=== PATIENT | male | born 1955 | race Caucasian/White ===

== ENCOUNTER 2017-03-04 05:26 | Emergency (ER) | payer BC, OTHER ==
[~2017-03-04] VITALS: Ht 182.9 cm; Wt 106.8 kg
[~2017-03-04 05:26] MED LIST: ACTUNK; GLYUNK; [UNRECOGNIZED DRUG - OTHER]
[2017-03-04 05:30] VITALS: TEMP 37; Ht 182.9 cm; Wt 106.8 kg
[2017-03-04 06:06] LABS: BASO % 0.3 %; BASO ABS # 0.02 K/uL (0-0.2); COMPLETE YES; EOS % 1.7 %; HEMATOCRIT 42.8 % (42-52); IG% 0.3 %; LYMPH ABS # 1.12 K/uL (1.2-3.4); MEAN CELL VOLUME 87.7 fL (80-100); MEAN CORPUSCULAR HEMOGLOBIN 29.7 pg (25-34); MEAN CORPUSCULAR HGB CONC 33.9 g/dl (32-36); MEAN PLATELET VOLUME 8.8 fL (7.4-10.4); MONO % 10.4 %; NEUT % 68.3 %; PLATELET COUNT 170 K/uL (130-400); RED BLOOD COUNT 4.88 M/uL (4.7-6.1); WHITE BLOOD COUNT 5.88 K/uL (4.8-10.8)
[2017-03-04 06:16] VITALS: O2SAT 94
--- NOTE | 2017-03-04 06:33 | DIAGNOSTIC IMAGING REPORT ---
HEAD WITHOUT CONTRAST (CT) CT DOSE: 614.27 mGy.cm HISTORY: Mental status change syncope/dizzy TECHNIQUE: Multiaxial CT images of the head were performed without the use of intravenous contrast. A dose lowering technique was utilized adhering to the principles of ALARA. Comparison: None. Findings: The paranasal sinuses and mastoid air cells are clear. The calvarium and skull base are intact. The ventricles and sulci are within normal limits. There is no mass, hematoma, midline shift, or acute infarct. Impression: No acute intracranial abnormality. The above report was generated using voice recognition software. It may contain grammatical, syntax or spelling errors. Electronically signed by: Audi Ferrari M.D. 03/04/2017 6:31 AM Dictated Date/Time: 03/04/2017 6:30 AM
[2017-03-04 06:38] LABS: ALT/SGPT 38 U/L (12-78); AST/SGOT 18 U/L (15-37); BLOOD UREA NITROGEN 15 mg/dl (7-18); BUN/CREATININE RATIO 12.2 (10-20); CALCIUM 8.9 mg/dl (8.5-10.1); CARBON DIOXIDE 23 mmol/L (21-32); CHLORIDE 100 mmol/L (98-107); CREATININE 1.25 mg/dl (0.60-1.40); GLUCOSE 358 mg/dl (70-99); POTASSIUM 3.9 mmol/L (3.5-5.1); SODIUM 135 mmol/L (136-145)
[2017-03-04] MEDS ORDERED: SODIUM CHLORIDE 0.9% 1000ML 1,000 ML IV STA (06:38)
[2017-03-04] MEDS ORDERED: ASPI81TA28 PO (06:41)
[2017-03-04] MEDS ORDERED: ALLO300T2 PO (06:41)
[2017-03-04 06:42] LABS: ALKALINE PHOSPHATASE 141 U/L (45-117)
[2017-03-04] MEDS ORDERED: GLYB5TAB8 PO (06:42)
[2017-03-04] MEDS ORDERED: ATOR-24 PO (06:42)
[2017-03-04] MEDS ORDERED: ENAL1TAB31 PO (06:42)
[2017-03-04] MEDS ORDERED: METF-384 PO (06:42)
[2017-03-04 06:48] LABS: BETA-HYDROXYBUTYRATE 2.73 mg/dL (0.2-2.81)
[2017-03-04 07:42] VITALS: BP 153/97; PULSE 76; O2SAT 98
--- NOTE | 2017-03-04 21:29 | EMERGENCY ROOM VISIT NOTE ---
History First contact with patient: 05:35 Chief Complaint: FALL Stated Complaint: BLACKED OUT, FELL HIT HEAD History of Present Illness The patient is a 61 year old male who presents to the Emergency Room with complaints of brief syncopal episode at 4 AM this morning. Patient states he was getting ready for work when he was sitting tying his shoes got up to walk to the car and got lightheaded and briefly passed out striking the back of his head on the ground. Patient then went to work but his coworkers convinced him to come to the ER. Patient states for the past year he has been getting lightheaded upon standing and saw his family care doctor for this with no clear answer. Patient is on blood pressure medicine. He is on an ALIZE inhibitor. Patient denies chest pain, dyspnea, neck stiffness, neck pain, back pain, abdominal pain, vomiting, diarrhea, weakness, vision problems, facial pain, palpitations, arm or leg pain. Patient did get lightheaded prior to the syncopal episode. No patient complains of mild discomfort to the back of his head where the abrasion is at. Tetanus is current. He is on a baby aspirin. No prior heart disease or blood clots. No history of CVA. No alcohol or drug use. Upon further questioning, the patient has not been sleeping much. Sometimes he gets 3-4 hours a night of sleep. Last night he did get several hours of sleep though. Review of Systems See HPI for pertinent positives & negatives. A total of 10 systems reviewed and were otherwise negative. Past Medical/Surgical History Hypertension, hyperlipidemia, diabetes, gout Social History Smoking Status: Never Smoker Smokeless Tobacco Use: No Alcohol Use: none Drug Use: none Marital Status: Housing Status: lives with family Occupation Status: employed Current/Historical Medications Scheduled Allopurinol (Zyloprim), 300 MG PO DAILY Aspirin (Aspirin Ec), 81 MG PO DAILY Atorvastatin (Lipitor), 40 MG PO DAILY Enalapril Maleate (Vasotec), 1 TAB PO DAILY Glyburide (Micronase), 10 MG PO BID Metformin Hcl (Glucophage), 1,000 MG PO BID Physical Exam Vital Signs Date Time Temp Pulse Resp B/P (MAP) Pulse Ox O2 Delivery O2 Flow Rate FiO2 03/04/17 07:42 76 20 153/97 98 Room Air 03/04/17 06:45 78 18 160/90 98 Room Air 03/04/17 06:16 94 Room Air 03/04/17 06:12 78 20 159/96 98 Room Air 81 169/92 84 177/93 03/04/17 05:59 84 03/04/17 05:30 37.0 86 18 168/92 98 Room Air Physical Exam PHYSICAL EXAM: VITALS: Vitals are noted on the nurse's note and reviewed by myself. Vital signs stable. GENERAL: Pleasant male smiling and interactive, in no acute distress, nondiaphoretic, well-developed well-nourished. SKIN: Superficial scalp abrasion to the right occipital region The rest of the skin was without obvious lacerations or abrasions. Capillary reflex less than 2 seconds. HEAD: Normocephalic EARS: External auditory canals clear, tympanic membranes pearly guerra without erythema or effusion bilaterally. No hemotympanums. No olea sign. No mastoid tenderness. EYES: Pupils equal round and reactive to light and accommodation. Conjunctivae without injection, sclerae without icterus. Extraocular movements intact. NOSE: Patent, turbinates without inflammation or discharge. No sinus tenderness. No septal hematoma or bleeding. FACE: No facial bone tenderness. Full range of motion of the jaw without tenderness. MOUTH: Mucous membranes moist. Pharynx without erythema or exudate. Uvula midline. Airway patent. Tongue does not deviate. NECK: Supple without nuchal rigidity. Cervical spine is nontender. Full range of motion of the neck without tenderness. No JVD. HEART: Regular rate and rhythm LUNGS: Clear to auscultation bilaterally without wheezes, rales or rhonchi. No dullness to percussion. No retractions or accessory muscle use. No chest wall tenderness. ABDOMEN: Positive bowel sounds x 4. Normal tympanic percussion. Soft, nontender, without masses or organomegaly. No guarding or rebound tenderness. MUSCULOSKELETAL: No tenderness of the thoracic or lumbar spine. Full range of motion without tenderness to palpation in all extremities. Normal gait. Strength 5/5 throughout. NEURO: Patient was alert and oriented to person place and time. Normal Mini- Mental status exam. Normal sensation to light and sharp touch. Negative pronator drift. Cerebellar function intact. No focal neurological deficits. Medical Decision & Procedures Laboratory Results 03/04/17 05:55 Red Blood Count 4.88, Mean Corpuscular Volume 87.7, Mean Corpuscular Hemoglobin 29.7, Mean Corpuscular Hemoglobin Concent 33.9, Mean Platelet Volume 8.8, Neutrophils (%) (Auto) 68.3, Lymphocytes (%) (Auto) 19.0, Monocytes (%) (Auto) 10.4, Eosinophils (%) (Auto) 1.7, Basophils (%) (Auto) 0.3, Neutrophils # (Auto ) 4.01, Lymphocytes # (Auto) 1.12, Monocytes # (Auto) 0.61, Eosinophils # (Auto ) 0.10, Basophils # (Auto) 0.02 03/04/17 05:55 Test 03/04/17 05:55 03/04/17 07:44 03/04/17 07:53 White Blood Count 5.88 K/uL (4.8-10.8) Red Blood Count 4.88 M/uL (4.7-6.1) Hemoglobin 14.5 g/dL (14.0-18.0) Hematocrit 42.8 % (42-52) Mean Corpuscular Volume 87.7 fL (80-100) Mean Corpuscular Hemoglobin 29.7 pg (25-34) Mean Corpuscular Hemoglobin Concent 33.9 g/dl (32-36) Platelet Count 170 K/uL (130-400) Mean Platelet Volume 8.8 fL (7.4-10.4) Neutrophils (%) (Auto) 68.3 % Lymphocytes (%) (Auto) 19.0 % Monocytes (%) (Auto) 10.4 % Eosinophils (%) (Auto) 1.7 % Basophils (%) (Auto) 0.3 % Neutrophils # (Auto) 4.01 K/uL (1.4-6.5) Lymphocytes # (Auto) 1.12 K/uL (1.2-3.4) Monocytes # (Auto) 0.61 K/uL (0.11-0.59) Eosinophils # (Auto) 0.10 K/uL (0-0.5) Basophils # (Auto) 0.02 K/uL (0-0.2) RDW Standard Deviation 42.3 fL (36.4-46.3) RDW Coefficient of Variation 13.2 % (11.5-14.5) Immature Granulocyte % (Auto) 0.3 % Immature Granulocyte # (Auto) 0.02 K/uL (0.00-0.02) Anion Gap 12.0 mmol/L (3-11) Est Creatinine Clear Calc Drug Dose 77.4 ml/min Estimated GFR () 71.1 Estimated GFR (Non- 61.3 BUN/Creatinine Ratio 12.2 (10-20) Calcium Level 8.9 mg/dl (8.5-10.1) Total Bilirubin 0.4 mg/dl (0.2-1) Direct Bilirubin < 0.1 mg/dl (0-0.2) Aspartate Amino Transf (AST/SGOT) 18 U/L (15-37) Alanine Aminotransferase (ALT/SGPT) 38 U/L (12-78) Alkaline Phosphatase 141 U/L (45-117) Total Protein 7.7 gm/dl (6.4-8.2) Albumin 4.2 gm/dl (3.4-5.0) Beta-Hydroxybutyric Acid 2.73 mg/dL (0.2-2.81) Thyroid Stimulating Hormone (TSH) 2.030 uIu/ml (0.300-4.500) Bedside Glucose 249 mg/dl (70-99) Bedside Troponin I < 0.030 ng/ml (0-0.045) Medications Administered Medications (Trade) Dose Ordered Sig/Fred Route Start Time Stop Time Status Last Admin Dose Admin Sodium Chloride 1,000 ml @ 999 mls/hr Q1H1M STAT IV 03/04/17 06:38 03/04/17 07:38 DC 03/04/17 06:44 999 MLS/HR ED Course Prior records/ancillary studies reviewed. Triage Nursing notes reviewed. Additional history obtained from family The patient's history was concerning for syncope. Differential diagnosis: Etiologies such as vasovagal event, infection, hypoglycemia, electrolyte abnormalities, cardiac sources, intracerebral event, toxicologic, neurologic, as well as others were entertained. Physical examination: Patient is alert, interactive and well-appearing ER treatment provided: By mouth fluids On reassessment the patient felt better. Diagnostics interpretation by me: ECG: Normal sinus, normal intervals, no acute ST-T wave changes, rate of 81. Impression normal sinus rhythm interpreted by myself The labs revealed stable H&H. Negative troponin 2 that is 2 hours apart Hyperglycemia without DKA. Patient is given a liter fluids. Blood sugar was repeated. Imaging studies: CT HEAD: Comparison: CT head 06/09/2008. No ICH, mass effect, or edema. Guerra-white matter differentiation is preserved. Right parietal scalp hematoma. No skull fracture. Visualized sinuses and mastoid air cells are clear. Radiologist: Laura Bob M.D. Study ready at 06:11 and initial results transmitted at 06:16 This appears to be consistent with syncope most likely vasovagal or orthostatic in nature. Patient was advised to monitor his blood sugar. Patient was neurovascularly and neurologically intact. He's been suffering from lightheadedness upon standing for quite some time. This could be related to his medications or from dehydration. He was advised to follow-up family care doctor today or tomorrow for further evaluation and workup for syncopal episode or here in the ER sooner for syncope, chest pains, weakness, worsening signs or symptoms or as needed. Patient had unremarkable workup as above. He was well- appearing. He was ambulated without difficulties. By the evaluation outlined above emergent etiologies such as infection, hypoglycemia, electrolyte abnormalities, cardiac sources, intracerebral event, toxicologic, neurologic,as well as others were deemed relatively unlikely. The pt informed about the findings as listed above. All questions were answered and pleased with the treatment. Return instructions were outlined and the patient was discharged in stable condition. Case reviewed with my attending Referral: The patient was referred back to their primary care physician for follow-up in 2 to 3 days for a recheck of the current condition. Medical Decision As above Head Trauma GCS Score: 15 Medication Reconcilliation Current Medication List: was personally reviewed by me Blood Pressure Screening Patient's blood pressure: Elevated blood pressure Blood pressure disposition: Elevated BP felt to be situational Impression Primary Impression: Syncope Additional Impressions: Head injury Scalp abrasion Hyperglycemia due to type 2 diabetes mellitus Departure Information Dispostion Home / Self-Care Condition GOOD Referrals Audi Douglas M.D. (PCP) Patient Instructions My [facility] Additional Instructions Antibiotic ointment and bandage to the areas until healed. Follow up with family doctor or return for any signs of infection (increasing redness, swelling , drainage, or fever). Keep covered when in sun until fully healed then SPF 50 or higher until scar healed. Read head injury handout and return for any symptoms. Tylenol 1000 mg as needed for pain (Maximum 3000 mg Tylenol in 24 hr period). Avoid alcohol and contact sports/activities for one week and follow up with family doctor prior to returning to these activities if still symptomatic. Ice and elevate head. If your symptoms persist more than a week then follow up with the concussion clinic. Call [phone]. Return to ER sooner for headache, fevers, confusion, worsening signs or symptoms or as needed. Monitor your blood sugar. It was high today. Recommend 8 hours of sleep a night. Get up slowly from a sitting position. Follow-up family care doctor in one to 2 days for your syncopal episode. Problem Qualifiers Primary Impression: Syncope Syncope type: unspecified Qualified Codes: R55 - Syncope and collapse Additional Impressions: Head injury Encounter type: initial encounter Qualified Codes: S09.90XA - Unspecified injury of head, initial encounter Scalp abrasion Encounter type: initial encounter Qualified Codes: S00.01XA - Abrasion of scalp, initial encounter
== END 2017-03-04 08:23 | disposition home or self-care (01) ==
LOC: C.EDB 05:27
DX: R55 Syncope and collapse (principal); S09.90XA Unspecified injury of head, initial encounter; S00.01XA Abrasion of scalp, initial encounter; W22.8XXA Striking against or struck by other objects, initial encounter; I10 Essential (primary) hypertension; E78.5 Hyperlipidemia, unspecified; E11.9 Type 2 diabetes mellitus without complications; M10.9 Gout, unspecified; Z79.82 Long term (current) use of aspirin; Z79.84 Long term (current) use of oral hypoglycemic drugs; Z79.899 Other long term (current) drug therapy

== ENCOUNTER 2017-08-14 16:28 | Emergency (ER) | payer OTHER ==
[~2017-08-14] VITALS: Ht 182.9 cm; Wt 105.6 kg
[~2017-08-14 16:28] MED LIST changes: -ACTUNK; +ALLO300T2 PO; +ASPI81TA28 PO; +ATOR-24 PO; +ENAL1TAB31 PO; +GLYB5TAB8 PO; -GLYUNK; +METF-384 PO; -[UNRECOGNIZED DRUG - OTHER]
[2017-08-14 16:33] VITALS: TEMP 36.6; Ht 182.9 cm; Wt 105.6 kg
--- NOTE | 2017-08-14 16:43 | EMERGENCY ROOM VISIT NOTE ---
History Report prepared by Camila: Leana Guaman Under the Supervision of: Dr. Sree Pop M.D. First contact with patient: 16:37 Chief Complaint: CARDIAC ASSESSMENT Stated Complaint: PAIN IN BOTTOM OF NECK- REFERRED History of Present Illness The patient is a 62 year old male who presents to the Emergency Room with complaints of persistent pain under his neck that started last night. He notes the pain occurred while he was breathing. The patient rates his pain a 1/10 in severity. He notes the pain radiated towards his left ear. He states the pain lasted until 1pm today. He notes he does not have any pain now. The patient denies shortness of breath, nausea, vomiting, lightheadedness, or dizziness. The patient has a history of Type II Diabetes. He denies any personal or family history of cardiac issues. Source of History: patient Onset: last night Position: neck (below neck) Symptom Intensity: 1/10 Timing: other (persistent) Associated Symptoms: No SOB, No vomiting Note: Denies lightheadedness or dizziness. Review of Systems See HPI for pertinent positives & negatives. A total of 10 systems reviewed and were otherwise negative. Past Medical & Surgical Diabetes Mellitus, hypertension. Old medical records were reviewed. Nurse's notes were reviewed and I agree with. Family History Diabetes mellitus Hypertension Social History Smoking Status: Former Smoker Alcohol Use: none Drug Use: none Marital Status: Housing Status: lives with family Occupation Status: employed Current/Historical Medications Scheduled Allopurinol (Zyloprim), 300 MG PO DAILY Aspirin (Aspirin Ec), 81 MG PO DAILY Aspirin (Aspirin Ec), 325 MG PO TODAY Atorvastatin (Lipitor), 40 MG PO QPM Enalapril (Vasotec), 10 MG PO DAILY Fish Oil (Valatie-3), 1 CAP PO DAILY Glyburide (Micronase), 10 MG PO BID Metformin Hcl (Glucophage), 1,000 MG PO BID Sitagliptin Phosphate (Januvia), 100 MG PO DAILY Allergies Coded Allergies: No Known Allergies (Unverified , 08/14/17) Physical Exam Vital Signs Date Time Temp Pulse Resp B/P (MAP) Pulse Ox O2 Delivery O2 Flow Rate FiO2 08/14/17 19:25 67 18 142/82 96 Room Air 08/14/17 18:06 67 18 127/80 98 Room Air 08/14/17 16:45 77 08/14/17 16:40 Room Air 08/14/17 16:33 36.6 80 18 156/86 97 Room Air Physical Exam General: Non-ill appearing middle aged male in no acute distress. HEENT: Normal cephalic atraumatic. Pupils are equal round and reactive to light. Extraocular movements are intact. Oropharynx is pink with moist mucous membranes. No swelling of the mouth lips or tongue. Neck: Supple with a midline trachea. No meningeal signs or stiffness, no JVD or bruits. No Stridor. Chest: Clear to auscultation bilaterally. No wheezes or rhonchi. No increased work of breathing. Heart: regular rate and rhythm. Abdomen: Soft nontender, nondistended without rebound guarding or rigidity. Extremities: No cyanosis clubbing or edema. No calf tenderness or assymetry Spine/Back. Non tender to palpation. No CVA tenderness Skin: Good turgor without rashes. Neurologic exam: Cranial nerves two through 12 are intact. Motor and sensation are intact and symmetrical throughout. Medical Decision & Procedures ER Provider Diagnostic Interpretation: Radiology results as stated below per my review and radiologist interpretation: CHEST ONE VIEW PORTABLE CLINICAL HISTORY: CHEST PAIN COMPARISON STUDY: No previous studies for comparison. FINDINGS: Lung volumes are mildly diminished. There is no pneumothorax or pleural effusion. There is no evidence for pulmonary edema. There may be a calcified right paratracheal lymph node. Mild cardiomegaly is noted. There is a possible 4.2 cm opacity along the left heart border. IMPRESSION: 1. 4.2 cm opacity along the left heart border. This could reflect atelectasis, epicardial fat pad or a small focus of pneumonia. Short-term radiographic follow up is recommended. 2. Mild cardiomegaly without evidence for pulmonary edema. Electronically signed by: Sree Matute M.D. 08/14/2017 5:10 PM Dictated Date/Time: 08/14/2017 5:09 PM Laboratory Results 08/14/17 16:55 Red Blood Count 4.51, Mean Corpuscular Volume 86.5, Mean Corpuscular Hemoglobin 29.9, Mean Corpuscular Hemoglobin Concent 34.6, Mean Platelet Volume 8.7, Neutrophils (%) (Auto) 57.9, Lymphocytes (%) (Auto) 26.4, Monocytes (%) (Auto) 13.9, Eosinophils (%) (Auto) 1.1, Basophils (%) (Auto) 0.2, Neutrophils # (Auto ) 5.12, Lymphocytes # (Auto) 2.34, Monocytes # (Auto) 1.23, Eosinophils # (Auto ) 0.10, Basophils # (Auto) 0.02 08/14/17 16:55 Test 08/14/17 16:55 08/14/17 19:06 White Blood Count 8.85 K/uL (4.8-10.8) Red Blood Count 4.51 M/uL (4.7-6.1) Hemoglobin 13.5 g/dL (14.0-18.0) Hematocrit 39.0 % (42-52) Mean Corpuscular Volume 86.5 fL (80-100) Mean Corpuscular Hemoglobin 29.9 pg (25-34) Mean Corpuscular Hemoglobin Concent 34.6 g/dl (32-36) Platelet Count 176 K/uL (130-400) Mean Platelet Volume 8.7 fL (7.4-10.4) Neutrophils (%) (Auto) 57.9 % Lymphocytes (%) (Auto) 26.4 % Monocytes (%) (Auto) 13.9 % Eosinophils (%) (Auto) 1.1 % Basophils (%) (Auto) 0.2 % Neutrophils # (Auto) 5.12 K/uL (1.4-6.5) Lymphocytes # (Auto) 2.34 K/uL (1.2-3.4) Monocytes # (Auto) 1.23 K/uL (0.11-0.59) Eosinophils # (Auto) 0.10 K/uL (0-0.5) Basophils # (Auto) 0.02 K/uL (0-0.2) RDW Standard Deviation 41.8 fL (36.4-46.3) RDW Coefficient of Variation 13.2 % (11.5-14.5) Immature Granulocyte % (Auto) 0.5 % Immature Granulocyte # (Auto) 0.04 K/uL (0.00-0.02) Prothrombin Time 10.8 SECONDS (9.0-12.0) Prothromb Time International Ratio 1.0 (0.9-1.1) Activated Partial Thromboplast Time 25.0 SECONDS (21.0-31.0) Partial Thromboplastin Ratio 1.0 D-Dimer 400 ug/L FEU (0-500) Anion Gap 7.0 mmol/L (3-11) Est Creatinine Clear Calc Drug Dose 86.3 ml/min Estimated GFR () 82.4 Estimated GFR (Non- 71.1 BUN/Creatinine Ratio 14.2 (10-20) Calcium Level 9.4 mg/dl (8.5-10.1) Total Bilirubin 0.4 mg/dl (0.2-1) Direct Bilirubin 0.1 mg/dl (0-0.2) Aspartate Amino Transf (AST/SGOT) 20 U/L (15-37) Alanine Aminotransferase (ALT/SGPT) 33 U/L (12-78) Alkaline Phosphatase 151 U/L (45-117) Total Creatine Kinase 217 U/L (39-308) Creatine Kinase MB 1.5 ng/ml (0.5-3.6) Creatine Kinase MB Ratio 0.7 (0-3.0) Total Protein 7.5 gm/dl (6.4-8.2) Albumin 4.2 gm/dl (3.4-5.0) Lipase 209 U/L (73-393) Thyroid Stimulating Hormone (TSH) 1.050 uIu/ml (0.300-4.500) Bedside Troponin I < 0.030 ng/ml (0-0.045) Laboratory studies as stated above per my review. ECG Per My Interpretation Indication: chest pain Rate (beats per minute): 73 Rhythm: normal sinus Findings: other (Jpoint elevation diffusely) Comparison ECG Date: 03/04/17 Change: J point elevation new ED Course 1640: Past medical records reviewed. The patient was evaluated in room B8, and a complete history and physical examination were performed. 1855: I talked to the patient about staying but he is ready to leave. Patient's second EKG: normal sinus, rate of 73, ST segment changes, early repolarization changes. No significant changes from 1st EKG. 1921: I reevaluated the patient and he is feeling fine. He is demanding to go home. I suggested we admit him to further evaluate his heart but he declined. The patient is ready for discharge. Medical Decision Differentials include, but are not limited to; acute coronary syndrome, arrhythmia, PE, CHF, pericarditis. This patient comes over after being seen in his doctor's office. He presented there with jaw pain and chest pain and refused ambulance transfer. At present he is pain-free and has received an aspirin today. I did get an EKG, there is no change compared to the old. He does have some J-point elevation diffusely. His d-dimer was within normal limits and a low pretest probability setting makes PE highly unlikely. His initial cardiac enzymes are negative. Chest x- ray was unremarkable. Is no acute electrolyte or metabolic abnormalities. I did repeat both EKG and the troponin. The repeat EKG is unchanged compared to the first. The troponin was 02. I talked the patient at length. I told him that although his workup looks unremarkable so far but it is difficult to rule out a cardiac disease in the ER and I highly recommended he be admitted for further treatment and observation. He adamantly denies this and says he needs to go home. He has been pain-free his entire time while he is here. I encouraged him to follow-up with his regular doctor tomorrow for recheck and encouraged that he may need further testing as an outpatient if he declines admission. He acknowledges this. He was encouraged to return to the ER if he has recurrence of symptoms or any new problems or concerns and also encouraged to ensure that he is taking a full-strength aspirin a day. Again he declined admission and was discharged to home Medication Reconcilliation Current Medication List: was personally reviewed by me Impression Primary Impression: Precordial chest pain Scribe Attestation The scribe's documentation has been prepared under my direction and personally reviewed by me in its entirety. I confirm that the note above accurately reflects all work, treatment, procedures, and medical decision making performed by me. Departure Information Dispostion Home / Self-Care Referrals Audi Douglas M.D. (PCP) Patient Instructions My [facility] Additional Instructions Rest. Ensure you are taking a full-strength aspirin 325 mg once a day Return to the ER if: worsening of symptoms, further pain, shortness of breath, any new problems or concerns Follow-up with your doctor in 1-2 days for recheck
--- NOTE | 2017-08-14 17:12 | DIAGNOSTIC IMAGING REPORT ---
CHEST ONE VIEW PORTABLE CLINICAL HISTORY: CHEST PAIN COMPARISON STUDY: No previous studies for comparison. FINDINGS: Lung volumes are mildly diminished. There is no pneumothorax or pleural effusion. There is no evidence for pulmonary edema. There may be a calcified right paratracheal lymph node. Mild cardiomegaly is noted. There is a possible 4.2 cm opacity along the left heart border. IMPRESSION: 1. 4.2 cm opacity along the left heart border. This could reflect atelectasis, epicardial fat pad or a small focus of pneumonia. Short-term radiographic follow up is recommended. 2. Mild cardiomegaly without evidence for pulmonary edema. Electronically signed by: Sree Matute M.D. 08/14/2017 5:10 PM Dictated Date/Time: 08/14/2017 5:09 PM
[2017-08-14 17:14] LABS: BASO % 0.2 %; BASO ABS # 0.02 K/uL (0-0.2); EOS % 1.1 %; HEMOGLOBIN 13.5 g/dL (14.0-18.0); IG# 0.04 K/uL (0.00-0.02); LYMPH % 26.4 %; LYMPH ABS # 2.34 K/uL (1.2-3.4); MEAN CELL VOLUME 86.5 fL (80-100); MEAN CORPUSCULAR HEMOGLOBIN 29.9 pg (25-34); MEAN CORPUSCULAR HGB CONC 34.6 g/dl (32-36); MEAN PLATELET VOLUME 8.7 fL (7.4-10.4); MONO % 13.9 %; MONO ABS # 1.23 K/uL (0.11-0.59); NEUT % 57.9 %; NEUT ABS # 5.12 K/uL (1.4-6.5); PLATELET COUNT 176 K/uL (130-400); RED CELL DISTRIBUTION WIDTH CV 13.2 % (11.5-14.5); RED CELL DISTRIBUTION WIDTH SD 41.8 fL (36.4-46.3); WHITE BLOOD COUNT 8.85 K/uL (4.8-10.8)
[2017-08-14 17:32] LABS: ALBUMIN 4.2 gm/dl (3.4-5.0); CALCIUM 9.4 mg/dl (8.5-10.1); CREATININE 1.1 mg/dl (0.60-1.40); POTASSIUM 3.9 mmol/L (3.5-5.1)
[2017-08-14 17:43] LABS: CKMB 1.5 ng/ml (0.5-3.6); TOTAL PROTEIN 7.5 gm/dl (6.4-8.2)
[2017-08-14] MEDS ORDERED: ENAL10TA88 PO (17:48)
[2017-08-14] MEDS ORDERED: SITA100T3 PO (17:48)
[2017-08-14] MEDS ORDERED: ASPI325T39 PO (17:49)
[2017-08-14] MEDS ORDERED: OMEG10007 PO (17:51)
[2017-08-14 19:25] VITALS: BP 142/82; PULSE 67; O2SAT 96
== END 2017-08-14 19:28 | disposition home or self-care (01) ==
LOC: C.EDB 16:31
DX: R07.2 Precordial pain (principal); E11.9 Type 2 diabetes mellitus without complications; I10 Essential (primary) hypertension; Z87.891 Personal history of nicotine dependence; Z79.82 Long term (current) use of aspirin; Z79.84 Long term (current) use of oral hypoglycemic drugs; Z79.899 Other long term (current) drug therapy; Z82.49 Family history of ischemic heart disease and other diseases of the circulatory system